=== PATIENT | female | born 1945 | race Caucasian/White ===

== ENCOUNTER → 2017-10-02 | Outpatient (CLI) | payer MEDICARE, OTHER | END | disposition home or self-care (01) | LOC: U/S 10:02 | DX: K76.9 Liver disease, unspecified (principal) | CPT/HCPCS: 76705 ==

== ENCOUNTER 2017-10-11 15:07 | Outpatient (CLI) | payer MEDICARE, OTHER | END 2017-10-11 15:56 | disposition home or self-care (01) | LOC: HPC 15:07 | DX: K76.9 Liver disease, unspecified (principal); I10 Essential (primary) hypertension; E03.9 Hypothyroidism, unspecified; K21.9 Gastro-esophageal reflux disease without esophagitis; M17.0 Bilateral primary osteoarthritis of knee; M19.012 Primary osteoarthritis, left shoulder; M19.011 Primary osteoarthritis, right shoulder; E04.2 Nontoxic multinodular goiter | CPT/HCPCS: G0463 ==

== ENCOUNTER 2018-08-25 13:49 | Emergency (ER) | payer SELFPAY, OTHER, MEDICARE | END 2018-08-25 15:46 | disposition left against medical advice (07) | LOC: E/R 13:49 | DX: Z53.21 Procedure and treatment not carried out due to patient leaving prior to being seen by health care provider (principal) ==